=== PATIENT | male | born 1960 | race Two or more races ===

== ENCOUNTER 2023-07-03 19:05 | Inpatient (IN) | payer MEDICARE, MEDICAID ==
[~2023-07-03] VITALS: Ht 165.1 cm; Wt 81.5 kg
[2023-07-03 20:09] LABS: Urine Bacteria None Seen /hpf (None Seen)
[2023-07-03 20:21] LABS: Basophils # (auto) 0.1 10 ^3/uL (0-0.2); Basophils % (auto) 0.5 % (0.0-2.0); Eosinophils # (auto) 0.2 10 ^3/uL (0-0.8); Eosinophils % (auto) 1.6 % (0.0-7.0); Hematocrit 43.2 % (41.0-53.0); Hemoglobin 14.6 g/dL (13.5-17.5); Lymphocytes # (auto) 3.3 10 ^3/uL (0.4-5.4); Lymphocytes % (auto) 32.2 % (10.0-50.0); Mean Corpuscular Hemoglobin 31.4 pg (28.0-32.0); Mean Corpuscular Hgb Conc. 33.8 g/dL (32.0-36.0); Monocytes # (auto) 0.7 10 ^3/uL (0-1.3); Monocytes % (auto) 6.5 % (0.0-12.0); Neutrophils # (auto) 6.1 10 ^3/uL (1.6-8.6); Neutrophils % (auto) 59.2 % (37.0-80.0); Red Blood Cells 4.64 10^6/uL (4.5-5.90); Red Cell Distribution Width 13.2 % (11.8-14.3); White Blood Cell 10.2 10^3/uL (4.4-10.8)
[2023-07-03 20:44] LABS: Alanine Aminotransferase 24 U/L (7-40); Albumin 4.4 g/dL (3.2-4.8); Alkaline Phosphatase 45 U/L (46-116); Anion Gap 5 (5-15); Aspartate Aminotransferase 20 U/L (13-40); BUN/Creatinine Ratio 11.7 (10.0-20.0); Bilirubin, Total 0.3 mg/dL (0.2-1.0); Blood Urea Nitrogen 13 mg/dL (9-23); Calcium 9.5 mg/dL (8.5-10.1); Carbon Dioxide 30 mmol/L (20-30); Chloride 109 mmol/L (98-107); Glucose 101 mg/dL (74-106); Potassium 4.4 mmol/L (3.5-5.1); Sodium 144 mmol/L (136-145)
[2023-07-03 20:45] LABS: Total Protein 7.1 g/dL (5.7-8.2)
[2023-07-03] MEDS: ONDANSETRON ODT 4 MG TAB PO ONE (20:54)
[2023-07-03] MEDS: HYDROcodone-ACET 10/325MG TAB PO ONE (20:54)
[2023-07-03 21:06] LABS: Urine Blood 3+ /uL (Negative); Urine Clarity Clear (Clear); Urine Color Light-Yellow (Yellow); Urine Mucus FEW (None Seen); Urine Protein, UAD TRACE (Negative); Urine Specific Gravity 1.022 (1.001-1.035); Urine Urobilinogen Normal (Negative); Urine WBC 5 /hpf (0 - 3); Urine pH 5.5 (5.0-9.0)
[2023-07-03] MEDS ORDERED: MORPHINE SULFATE INJ 2 MG/ml SYRG IV PRN (23:00)
[2023-07-03] MEDS ORDERED: DOCUSATE SOD 100 MG CAP PO PRN (23:00)
[2023-07-03] MEDS ORDERED: ACETAMINOPHEN 325 MG TAB PO PRN ×2 (23:00)
[2023-07-03] MEDS ORDERED: ONDANSETRON HCL 4 MG/2 ML VIAL IV PRN (23:00)
[2023-07-03] MEDS ORDERED: HYDROcodone-ACET 5/325MG TAB PO PRN (23:00)
[2023-07-03] MEDS ORDERED: MAGN241.4 PO (23:01)
[2023-07-03] MEDS ORDERED: ASPI-325 PO (23:01)
[2023-07-03] MEDS: TAMSULOSIN HYDROCHLORIDE 0.4 MG CAP PO ONE (23:19)
[2023-07-03 23:20] VITALS: PULSE 60; RESP 17; O2SAT 93
[2023-07-03] MEDS: SODIUM CHLORIDE 0.9% 1,000 ML IV ONE (23:36)
[2023-07-03] MEDS: SODIUM CHLORIDE 0.9% 1,000 ML IV SCH (23:36)
[2023-07-04 01:14] VITALS: BP 122/84; PULSE 55; RESP 18; TEMP 97.7; O2SAT 95
[2023-07-04 05:00] VITALS: BP 117/80; PULSE 63; RESP 18; TEMP 97.6; O2SAT 95
[2023-07-04 06:58] LABS: Basophils # (auto) 0 10 ^3/uL (0-0.2); Basophils % (auto) 0.4 % (0.0-2.0); Eosinophils # (auto) 0.2 10 ^3/uL (0-0.8); Eosinophils % (auto) 1.8 % (0.0-7.0); Hematocrit 38.3 % (41.0-53.0); Hemoglobin 13.2 g/dL (13.5-17.5); Lymphocytes # (auto) 3.3 10 ^3/uL (0.4-5.4); Lymphocytes % (auto) 36.5 % (10.0-50.0); Mean Corpuscular Hemoglobin 32.4 pg (28.0-32.0); Mean Corpuscular Hgb Conc. 34.6 g/dL (32.0-36.0); Mean Corpuscular Volume 93.7 fL (80.0-100.0); Monocytes # (auto) 0.6 10 ^3/uL (0-1.3); Neutrophils # (auto) 4.9 10 ^3/uL (1.6-8.6); Neutrophils % (auto) 54.3 % (37.0-80.0); Nucleated Red Blood Cells % 0.1 %; Red Blood Cells 4.09 10^6/uL (4.5-5.90); Red Cell Distribution Width 13.3 % (11.8-14.3); White Blood Cell 9.1 10^3/uL (4.4-10.8)
[2023-07-04 07:00] LABS: Alanine Aminotransferase 24 U/L (7-40); Alkaline Phosphatase 37 U/L (46-116); Anion Gap 7 (5-15); BUN/Creatinine Ratio 11.8 (10.0-20.0); Blood Urea Nitrogen 10 mg/dL (9-23); Calcium 8.6 mg/dL (8.5-10.1); Carbon Dioxide 24 mmol/L (20-30); Chloride 110 mmol/L (98-107); Glucose 99 mg/dL (74-106); Potassium 3.7 mmol/L (3.5-5.1); Sodium 141 mmol/L (136-145)
[2023-07-04 07:01] LABS: Albumin 3.8 g/dL (3.2-4.8); Aspartate Aminotransferase 19 U/L (13-40); Bilirubin, Total 0.4 mg/dL (0.2-1.0); Total Protein 5.9 g/dL (5.7-8.2)
[2023-07-04 08:00] VITALS: BP 127/81; PULSE 67; RESP 18; TEMP 97.6; O2SAT 96
[2023-07-04 09:06] VITALS: BP 127/81; PULSE 67; RESP 18; TEMP 97.6; O2SAT 96
[2023-07-04] MEDS: ASPirin-EC 81 mg tab PO SCH (09:20)
[2023-07-04] MEDS: MAGNESIUM OXIDE 400 MG TAB PO SCH (09:20)
[2023-07-04 12:43] VITALS: BP 136/82; PULSE 61; RESP 16; TEMP 98.6; O2SAT 98
[2023-07-04 14:54] VITALS: BP 136/82; PULSE 61; RESP 18; TEMP 37; O2SAT 98
[2023-07-04] MEDS ORDERED: TAMSULOSIN HYDROCHLORIDE 0.4 MG CAP PO SCH (18:00)
== END 2023-07-04 15:45 | disposition home or self-care (01) | DRG 694 ==
LOC: ER 19:05 → OVERFLOW 23:01 → WEST WING 07-04 01:11
PROVIDERS: ADMIT Nurse Practitioner Family; ATTEND Family Medicine
DX: N13.2 Hydronephrosis with renal and ureteral calculous obstruction (principal); I10 Essential (primary) hypertension; Z87.442 Personal history of urinary calculi; Z86.73 Personal history of transient ischemic attack (TIA), and cerebral infarction without residual deficits; Z79.82 Long term (current) use of aspirin; Z87.891 Personal history of nicotine dependence
CPT/HCPCS: 36415; 74176; 80053; 81001; 85025; G0378; Q0162